=== PATIENT | female | born 1975 | race Caucasian/White ===

== ENCOUNTER 2021-06-16 11:47 | Emergency (ER) | payer BC ==
[2021-06-16] MEDS ORDERED: Lidocaine 1% 5 ML VIAL INJECT ONE (12:32)
[2021-06-16 12:50] LABS: CHLORIDE,CL 102 mmol/L (98-107); SODIUM,NA 138 mmol/L (136-145)
[2021-06-16] MEDS ORDERED: Lidocaine 2% with EPINEPHrine 1:100,000 20 ML MDV INJECT ONE (13:00)
[2021-06-16] MEDS ORDERED: Triamcinolone Acetonide 40 MG/ML 1 ML SDV INJECT ONE (13:15)
== END 2021-06-16 14:00 | disposition home or self-care (01) ==
LOC: LL.ED 11:47
DX: L02.214 Cutaneous abscess of groin (principal); D23.5 Other benign neoplasm of skin of trunk; B35.9 Dermatophytosis, unspecified
CPT/HCPCS: 10060; 36415; 80048; 85025; 99283; J3301